=== PATIENT | female | born 1950 | race Caucasian/White ===

== ENCOUNTER 2020-10-29 09:07 | Inpatient (IN) ==
[2020-10-30] MEDS: Gabapentin 100 MG CAPSULE PO SCH ×2 (14:55→22:41)
[2020-10-30] MEDS: Baclofen 10 MG TABLET PO SCH ×2 (14:56→22:42)
[2020-10-30] MEDS ORDERED: Lidocaine 4% CREAM (LMX) 5 GM TP PRN (14:58)
[2020-10-30] MEDS: Budesonide/Formoterol 160/4.5 1 PUFF INH IH SCH (20:09)
[2020-10-30] MEDS: Amoxicillin 500 MG CAPSULE PO SCH (22:41)
[2020-10-31 04:52] LABS: Hematocrit 28.8 % (35.3-44.9); Hemoglobin 8.8 g/dL (11.5-15.4); Mean Corpuscular HGB Conc 30.6 g/dL (31.6-35.5); Mean Corpuscular Hemoglobin 26.4 pg (28.0-33.3); Mean Corpuscular Volume 86.5 fL (83.0-100.0); Mean Platelet Volume 8.6 fL (9.4-12.4); Platelet Count 284 K/mcL (140-400); Red Blood Count 3.33 M/mcL (3.82-4.97); Red Cell Distribution Width 18.5 % (11.5-14.5); White Blood Count 6.8 K/mcL (4.3-11.1)
[2020-10-31 05:07] LABS: BUN/Creatinine Ratio 12 (6-26); Blood Urea Nitrogen 12 mg/dL (8-23); Calcium 8.6 mg/dL (8.6-10.3); Carbon Dioxide 23 mEq/L (23-29); Chloride 112 mEq/L (98-107); Glucose 89 mg/dL (70-105); Osmolality,Calculated 293 (280-300); Potassium 3.6 mEq/L (3.5-5.1); Sodium 142 mEq/L (136-145); eGFR For African Americans > 60 (> 60); eGFR For Non-African Americans 53 (> 60)
[2020-10-31] MEDS: *HR* Enoxaparin 40 MG/0.4 ML SYRINGE SQ SCH (06:32)
[2020-10-31] MEDS ORDERED: NON-FORMULARY MEDICATION 1 EACH EACH (Omega-3/Dha/Epa/Fish Oil [Fish Oil 1,000 Mg Softgel] PO SCH (09:00)
[2020-10-31] MEDS: Gabapentin 100 MG CAPSULE PO SCH ×3 (09:26→21:34)
[2020-10-31] MEDS: Aspirin Enteric Coated 81 MG Tablet PO SCH (09:26)
[2020-10-31] MEDS: Amoxicillin 500 MG CAPSULE PO SCH ×2 (09:26→21:34)
[2020-10-31] MEDS: Baclofen 10 MG TABLET PO SCH ×3 (09:26→21:35)
[2020-10-31] MEDS: lisinopriL 10 MG TABLET PO SCH (09:26)
[2020-10-31] MEDS: Lactobacillus 1 EACH CAP.SPRINK PO SCH (09:26)
[2020-10-31] MEDS: Loratadine 10 MG TABLET PO SCH (09:27)
[2020-10-31] MEDS: Cholecalciferol (D-3) 1,000 UNIT (25MCG) TABLET PO SCH (09:27)
[2020-10-31] MEDS: predniSONE 5 MG TABLET PO SCH (09:27)
[2020-10-31] MEDS: Budesonide/Formoterol 160/4.5 1 PUFF INH IH SCH ×2 (09:34→20:29)
[2020-10-31] MEDS: *HR* OxyCODONE/APAP 5/325 TABLET PO PRN (20:18)
[2020-11-01] MEDS: *HR* Enoxaparin 40 MG/0.4 ML SYRINGE SQ SCH (06:28)
[2020-11-01] MEDS: Budesonide/Formoterol 160/4.5 1 PUFF INH IH SCH ×2 (07:59→21:04)
[2020-11-01] MEDS: Loratadine 10 MG TABLET PO SCH (08:14)
[2020-11-01] MEDS: Aspirin Enteric Coated 81 MG Tablet PO SCH (08:14)
[2020-11-01] MEDS: Gabapentin 100 MG CAPSULE PO SCH ×2 (08:14→21:33)
[2020-11-01] MEDS: Amoxicillin 500 MG CAPSULE PO SCH ×2 (08:14→21:33)
[2020-11-01] MEDS: Cholecalciferol (D-3) 1,000 UNIT (25MCG) TABLET PO SCH (08:14)
[2020-11-01] MEDS: Lactobacillus 1 EACH CAP.SPRINK PO SCH (08:14)
[2020-11-01] MEDS: Baclofen 10 MG TABLET PO SCH ×2 (08:15→16:51)
[2020-11-01] MEDS: lisinopriL 10 MG TABLET PO SCH (08:15)
[2020-11-01] MEDS: *HR* OxyCODONE/APAP 5/325 TABLET PO PRN ×2 (08:20→20:27)
[2020-11-01 15:19] LABS: Hematocrit 33.9 % (35.3-44.9); Hemoglobin 10.6 g/dL (11.5-15.4); Mean Corpuscular HGB Conc 31.3 g/dL (31.6-35.5); Mean Corpuscular Hemoglobin 26.8 pg (28.0-33.3); Mean Corpuscular Volume 85.6 fL (83.0-100.0); Mean Platelet Volume 8.3 fL (9.4-12.4); Platelet Count 312 K/mcL (140-400); Red Blood Count 3.96 M/mcL (3.82-4.97); Red Cell Distribution Width 18.2 % (11.5-14.5); White Blood Count 17.1 K/mcL (4.3-11.1)
[2020-11-01 15:36] LABS: Albumin 3.1 g/dL (3.5-5.7); Albumin/Globulin Ratio 1.2 (1.1-2.2); Bilirubin,Total 0.2 mg/dL (0.3-1.0); Calcium 9.2 mg/dL (8.6-10.3); Globulin 2.5 g/dL (2.4-3.5); Magnesium 1.6 mg/dL (1.6-2.6); Potassium 3.5 mEq/L (3.5-5.1); Total Protein 5.6 g/dL (6.4-8.9)
[2020-11-01] MEDS: predniSONE 5 MG TABLET PO SCH (16:51)
[2020-11-02] MEDS: *HR* Enoxaparin 40 MG/0.4 ML SYRINGE SQ SCH (05:10)
[2020-11-02] MEDS: Baclofen 10 MG TABLET PO SCH ×2 (05:10→17:45)
[2020-11-02] MEDS: Budesonide/Formoterol 160/4.5 1 PUFF INH IH SCH ×2 (07:12→20:19)
[2020-11-02] MEDS: Loratadine 10 MG TABLET PO SCH (09:46)
[2020-11-02] MEDS: Aspirin Enteric Coated 81 MG Tablet PO SCH (09:46)
[2020-11-02] MEDS: predniSONE 5 MG TABLET PO SCH (09:46)
[2020-11-02] MEDS: lisinopriL 10 MG TABLET PO SCH (09:47)
[2020-11-02] MEDS: Amoxicillin 500 MG CAPSULE PO SCH ×2 (09:47→21:11)
[2020-11-02] MEDS: Lactobacillus 1 EACH CAP.SPRINK PO SCH (09:47)
[2020-11-02] MEDS: Gabapentin 100 MG CAPSULE PO SCH ×2 (09:47→21:12)
[2020-11-02] MEDS: Cholecalciferol (D-3) 1,000 UNIT (25MCG) TABLET PO SCH (09:48)
[2020-11-02] MEDS: *HR* OxyCODONE/APAP 5/325 TABLET PO PRN ×2 (11:24→19:32)
[2020-11-03 04:48] LABS: Hemoglobin 9.5 g/dL (11.5-15.4); Mean Corpuscular HGB Conc 30.6 g/dL (31.6-35.5); Mean Corpuscular Hemoglobin 26.4 pg (28.0-33.3); Mean Corpuscular Volume 86.1 fL (83.0-100.0); Mean Platelet Volume 8.5 fL (9.4-12.4); Platelet Count 342 K/mcL (140-400); Red Cell Distribution Width 18.4 % (11.5-14.5); White Blood Count 9.9 K/mcL (4.3-11.1)
[2020-11-03 05:10] LABS: Calcium 9.1 mg/dL (8.6-10.3); Potassium 3.8 mEq/L (3.5-5.1)
[2020-11-03] MEDS: Baclofen 10 MG TABLET PO SCH ×2 (06:20→15:30)
[2020-11-03] MEDS: *HR* Enoxaparin 40 MG/0.4 ML SYRINGE SQ SCH (06:20)
[2020-11-03] MEDS: *HR* OxyCODONE/APAP 5/325 TABLET PO PRN ×2 (07:45→22:49)
[2020-11-03] MEDS: Budesonide/Formoterol 160/4.5 1 PUFF INH IH SCH ×2 (09:11→19:08)
[2020-11-03] MEDS: Aspirin Enteric Coated 81 MG Tablet PO SCH (10:03)
[2020-11-03] MEDS: Amoxicillin 500 MG CAPSULE PO SCH ×2 (10:03→20:35)
[2020-11-03] MEDS: Lactobacillus 1 EACH CAP.SPRINK PO SCH (10:03)
[2020-11-03] MEDS: Cholecalciferol (D-3) 1,000 UNIT (25MCG) TABLET PO SCH (10:03)
[2020-11-03] MEDS: Loratadine 10 MG TABLET PO SCH (10:04)
[2020-11-03] MEDS: lisinopriL 10 MG TABLET PO SCH (10:04)
[2020-11-03] MEDS: Gabapentin 100 MG CAPSULE PO SCH ×2 (10:04→20:35)
[2020-11-03] MEDS: predniSONE 5 MG TABLET PO SCH (10:04)
[2020-11-03 16:29] LABS: Bilirubin,Urine Negative (Negative); Blood,Urine Large (Negative); Clarity,Urine Clear (Clear); Color,Urine Yellow (Yellow); Glucose,Urine (UA) Normal (Normal); Ketones,Urine Negative (Negative); Leukocyte Esterase,Urine Moderate (Negative); Nitrite,Urine Negative (Negative); Protein,Urine 100 mg/dL (Neg-Trace); Specific Gravity,Urine 1.015 (1.010-1.025); Urobilinogen,Urine Normal (Normal)
[2020-11-03 17:07] LABS: WBC,Urine TNTC per hpf (0-3)
[2020-11-04] MEDS: Baclofen 10 MG TABLET PO SCH ×2 (05:23→17:26)
[2020-11-04] MEDS: *HR* Enoxaparin 40 MG/0.4 ML SYRINGE SQ SCH (07:49)
[2020-11-04] MEDS: *HR* OxyCODONE/APAP 5/325 TABLET PO PRN ×2 (09:27→20:51)
[2020-11-04] MEDS: Cholecalciferol (D-3) 1,000 UNIT (25MCG) TABLET PO SCH (09:27)
[2020-11-04] MEDS: Aspirin Enteric Coated 81 MG Tablet PO SCH (09:28)
[2020-11-04] MEDS: Loratadine 10 MG TABLET PO SCH (09:28)
[2020-11-04] MEDS: predniSONE 5 MG TABLET PO SCH (09:28)
[2020-11-04] MEDS: Lactobacillus 1 EACH CAP.SPRINK PO SCH (09:28)
[2020-11-04] MEDS: lisinopriL 10 MG TABLET PO SCH (09:28)
[2020-11-04] MEDS: Amoxicillin 500 MG CAPSULE PO SCH ×2 (09:28→21:38)
[2020-11-04] MEDS: Budesonide/Formoterol 160/4.5 1 PUFF INH IH SCH ×2 (09:57→19:30)
[2020-11-04] MEDS: Gabapentin 100 MG CAPSULE PO SCH ×2 (10:40→21:38)
[2020-11-05] MEDS: Baclofen 10 MG TABLET PO SCH ×2 (05:43→17:32)
[2020-11-05] MEDS: *HR* Enoxaparin 40 MG/0.4 ML SYRINGE SQ SCH (05:45)
[2020-11-05] MEDS: Budesonide/Formoterol 160/4.5 1 PUFF INH IH SCH ×2 (07:11→22:09)
[2020-11-05] MEDS: *HR* OxyCODONE/APAP 5/325 TABLET PO PRN ×2 (07:45→20:16)
[2020-11-05] MEDS: Aspirin Enteric Coated 81 MG Tablet PO SCH (09:21)
[2020-11-05] MEDS: Lactobacillus 1 EACH CAP.SPRINK PO SCH (09:21)
[2020-11-05] MEDS: Cholecalciferol (D-3) 1,000 UNIT (25MCG) TABLET PO SCH (09:21)
[2020-11-05] MEDS: Gabapentin 100 MG CAPSULE PO SCH (09:21)
[2020-11-05] MEDS: Loratadine 10 MG TABLET PO SCH (09:21)
[2020-11-05] MEDS: predniSONE 5 MG TABLET PO SCH (09:21)
[2020-11-05] MEDS: lisinopriL 10 MG TABLET PO SCH (09:23)
[2020-11-06] MEDS: Gabapentin 100 MG CAPSULE PO SCH ×3 (00:48→22:17)
[2020-11-06] MEDS: Baclofen 10 MG TABLET PO SCH ×2 (06:10→17:20)
[2020-11-06] MEDS: *HR* Enoxaparin 40 MG/0.4 ML SYRINGE SQ SCH (06:10)
[2020-11-06] MEDS: *HR* OxyCODONE/APAP 5/325 TABLET PO PRN ×2 (08:52→20:03)
[2020-11-06] MEDS: Budesonide/Formoterol 160/4.5 1 PUFF INH IH SCH ×2 (10:17→20:15)
[2020-11-06] MEDS: Lactobacillus 1 EACH CAP.SPRINK PO SCH (10:33)
[2020-11-06] MEDS: Loratadine 10 MG TABLET PO SCH (10:33)
[2020-11-06] MEDS: Cholecalciferol (D-3) 1,000 UNIT (25MCG) TABLET PO SCH (10:33)
[2020-11-06] MEDS: Aspirin Enteric Coated 81 MG Tablet PO SCH (10:34)
[2020-11-06] MEDS: lisinopriL 10 MG TABLET PO SCH (10:34)
[2020-11-06] MEDS: predniSONE 5 MG TABLET PO SCH (10:34)
[2020-11-07] MEDS: *HR* Enoxaparin 40 MG/0.4 ML SYRINGE SQ SCH (05:21)
[2020-11-07] MEDS: Baclofen 10 MG TABLET PO SCH ×2 (06:38→15:32)
[2020-11-07] MEDS: *HR* OxyCODONE/APAP 5/325 TABLET PO PRN ×2 (07:53→19:49)
[2020-11-07] MEDS: Aspirin Enteric Coated 81 MG Tablet PO SCH (08:51)
[2020-11-07] MEDS: lisinopriL 10 MG TABLET PO SCH (08:51)
[2020-11-07] MEDS: Lactobacillus 1 EACH CAP.SPRINK PO SCH (08:51)
[2020-11-07] MEDS: Cholecalciferol (D-3) 1,000 UNIT (25MCG) TABLET PO SCH (08:51)
[2020-11-07] MEDS: predniSONE 5 MG TABLET PO SCH (08:51)
[2020-11-07] MEDS: Gabapentin 100 MG CAPSULE PO SCH ×2 (08:51→22:22)
[2020-11-07] MEDS: Loratadine 10 MG TABLET PO SCH (08:51)
[2020-11-07] MEDS: Budesonide/Formoterol 160/4.5 1 PUFF INH IH SCH ×2 (10:14→21:15)
[2020-11-07] MEDS: Magic Mouthwash 10 ML UD Cup PO SCH ×2 (13:12→17:49)
[2020-11-08 05:29] LABS: BUN/Creatinine Ratio 26 (6-26); Blood Urea Nitrogen 24 mg/dL (8-23); Carbon Dioxide 24 mEq/L (23-29); Chloride 108 mEq/L (98-107); Glucose 80 mg/dL (70-105); Magnesium 1.9 mg/dL (1.6-2.6); Osmolality,Calculated 295 (280-300); Potassium 3.8 mEq/L (3.5-5.1); Sodium 141 mEq/L (136-145); eGFR For African Americans > 60 (> 60); eGFR For Non-African Americans > 60 (> 60)
[2020-11-08 05:41] LABS: Hematocrit 30.8 % (35.3-44.9); Hemoglobin 9.4 g/dL (11.5-15.4); Mean Corpuscular HGB Conc 30.5 g/dL (31.6-35.5); Mean Corpuscular Hemoglobin 27.6 pg (28.0-33.3); Mean Corpuscular Volume 90.3 fL (83.0-100.0); Mean Platelet Volume 9.3 fL (9.4-12.4); Platelet Count 353 K/mcL (140-400); Red Blood Count 3.41 M/mcL (3.82-4.97); Red Cell Distribution Width 17.9 % (11.5-14.5); White Blood Count 8.6 K/mcL (4.3-11.1)
[2020-11-08] MEDS: Baclofen 10 MG TABLET PO SCH ×2 (06:16→16:20)
[2020-11-08] MEDS: *HR* Enoxaparin 40 MG/0.4 ML SYRINGE SQ SCH (06:18)
[2020-11-08] MEDS: *HR* OxyCODONE/APAP 5/325 TABLET PO PRN ×2 (08:02→19:45)
[2020-11-08] MEDS: Magic Mouthwash 10 ML UD Cup PO SCH ×3 (09:24→16:16)
[2020-11-08] MEDS: Aspirin Enteric Coated 81 MG Tablet PO SCH (09:25)
[2020-11-08] MEDS: predniSONE 5 MG TABLET PO SCH (09:25)
[2020-11-08] MEDS: Cholecalciferol (D-3) 1,000 UNIT (25MCG) TABLET PO SCH (09:25)
[2020-11-08] MEDS: lisinopriL 10 MG TABLET PO SCH (09:25)
[2020-11-08] MEDS: Lactobacillus 1 EACH CAP.SPRINK PO SCH (09:25)
[2020-11-08] MEDS: Gabapentin 100 MG CAPSULE PO SCH ×2 (09:25→21:29)
[2020-11-08] MEDS: Loratadine 10 MG TABLET PO SCH (09:26)
[2020-11-08] MEDS: Budesonide/Formoterol 160/4.5 1 PUFF INH IH SCH ×2 (10:50→19:14)
[2020-11-09] MEDS: Baclofen 10 MG TABLET PO SCH (05:44)
[2020-11-09] MEDS: *HR* Enoxaparin 40 MG/0.4 ML SYRINGE SQ SCH (05:45)
[2020-11-09 07:06] VITALS: BP 137/84; PULSE 81; TEMP 97.9
[2020-11-09] MEDS: *HR* OxyCODONE/APAP 5/325 TABLET PO PRN (07:35)
[2020-11-09] MEDS: Magic Mouthwash 10 ML UD Cup PO SCH ×2 (07:43→14:03)
[2020-11-09] MEDS: Gabapentin 100 MG CAPSULE PO SCH (10:09)
[2020-11-09] MEDS: Cholecalciferol (D-3) 1,000 UNIT (25MCG) TABLET PO SCH (10:09)
[2020-11-09] MEDS: Lactobacillus 1 EACH CAP.SPRINK PO SCH (10:09)
[2020-11-09] MEDS: predniSONE 5 MG TABLET PO SCH (10:10)
[2020-11-09] MEDS: Aspirin Enteric Coated 81 MG Tablet PO SCH (10:10)
[2020-11-09] MEDS: lisinopriL 10 MG TABLET PO SCH (10:10)
[2020-11-09] MEDS: Loratadine 10 MG TABLET PO SCH (10:10)
[2020-11-09] MEDS: Budesonide/Formoterol 160/4.5 1 PUFF INH IH SCH (10:18)
[2020-11-09 10:21] VITALS: RESP 20; O2SAT 97
== END 2020-11-09 16:10 | disposition home health service (06) | DRG 945 ==
LOC: INPGRE 10-30 13:08
PROVIDERS: ADMIT Family Medicine; ATTEND Family Medicine

== ENCOUNTER 2020-11-11 19:39 | Inpatient (IN) ==
[2020-11-11 21:04] LABS: Basophils # 0.1 K/mcL (0.0-0.2); Basophils % 0.4 %; Eosinophils % 0.1 %; Hematocrit 32.2 % (35.3-44.9); Hemoglobin 9.7 g/dL (11.5-15.4); Immature Granulocytes % 0.7 % (0-4); Lymphocytes # 0.9 K/mcL (0.6-4.6); Lymphocytes % 5.3 %; Mean Corpuscular HGB Conc 30.1 g/dL (31.6-35.5); Mean Corpuscular Hemoglobin 25.9 pg (28.0-33.3); Mean Corpuscular Volume 85.9 fL (83.0-100.0); Monocytes # 1.2 K/mcL (0.0-1.3); Monocytes % 6.9 %; Neutrophils # 14.6 K/mcL (1.6-8.9); Platelet Count 335 K/mcL (140-400); Red Blood Count 3.75 M/mcL (3.82-4.97); Red Cell Distribution Width 17.1 % (11.5-14.5); Segmented Neutrophils % 86.6 %; White Blood Count 16.8 K/mcL (4.3-11.1)
[2020-11-11 21:22] LABS: Troponin I 0.12 ng/mL (< 0.04)
[2020-11-11] MEDS ORDERED: *HR* Heparin 5,000 UNIT/ML VIAL IVP PRN ×2 (21:46)
[2020-11-11] MEDS ORDERED: *HR* Heparin 5,000 UNIT/ML VIAL IVP ONE (21:46)
[2020-11-11] MEDS ORDERED: Heparin 25,000UNIT/250ML 1/2NS 25,000 UNIT/250 ML IV.SOLN IVC SCH (22:00)
[2020-11-11 22:37] LABS: Chloride 104 mEq/L (98-107); Potassium 3.8 mEq/L (3.5-5.1); Sodium 133 mEq/L (136-145)
[2020-11-11 22:38] LABS: BUN/Creatinine Ratio 18 (6-26); Blood Urea Nitrogen 17 mg/dL (8-23); Calcium 8.3 mg/dL (8.6-10.3); Carbon Dioxide 19 mEq/L (23-29); Glucose 91 mg/dL (70-105); Osmolality,Calculated 277 (280-300); eGFR For African Americans > 60 (> 60); eGFR For Non-African Americans 57 (> 60)
[2020-11-11 22:39] LABS: Alanine Aminotransferase 9 Units/L (7-52); Albumin 2.9 g/dL (3.5-5.7); Albumin/Globulin Ratio 1.1 (1.1-2.2); Alkaline Phosphatase 53 Units/L (34-104); Aspartate Amino Transferase 16 Units/L (13-39); Bilirubin,Total 0.7 mg/dL (0.3-1.0); Globulin 2.7 g/dL (2.4-3.5); Total Protein 5.6 g/dL (6.4-8.9)
[2020-11-11 22:44] LABS: Bilirubin,Urine Negative (Negative); Blood,Urine Moderate (Negative); Clarity,Urine Cloudy (Clear); Color,Urine Yellow (Yellow); Glucose,Urine (UA) Normal (Normal); Ketones,Urine Negative (Negative); Leukocyte Esterase,Urine Large (Negative); Nitrite,Urine Negative (Negative); Protein,Urine 100 mg/dL (Neg-Trace); Urobilinogen,Urine Normal (Normal)
[2020-11-11] MEDS: levoFLOXacin 750 MG/150 ML 750 MG/150 ML BAG IVPB SCH (22:54)
[2020-11-11 23:07] LABS: Bacteria,Urine Many per hpf (None-Few); Squamous Epithelial Cell,Urine Few per hpf (None-Few); WBC,Urine 30-50 per hpf (0-3)
[2020-11-12] MEDS ORDERED: Ondansetron 4 MG/2 ML VIAL IVP ONE (00:39)
[2020-11-12] MEDS ORDERED: *HR* OxyCODONE/APAP 5/325 TABLET PO ONE (03:36)
[2020-11-12] MEDS: levoFLOXacin 750 MG/150 ML 750 MG/150 ML BAG IVPB SCH (09:34)
[2020-11-12] MEDS ORDERED: Naloxone 0.4 MG/ML INJ IVP PRN (10:27)
[2020-11-12] MEDS ORDERED: Ondansetron 4 MG/2 ML VIAL IVP PRN (10:27)
[2020-11-12] MEDS ORDERED: 0.9 % Sodium Chloride 500 ML ONE (10:35)
[2020-11-12] MEDS: Baclofen 10 MG TABLET PO SCH ×3 (11:25→18:58)
[2020-11-12] MEDS: 0.9 % Sodium Chloride 1,000 ML IVC SCH ×2 (11:43→21:13)
[2020-11-12] MEDS: Ampicillin/Sulbactam 1,500 MG in 0.9 % Sodium Chloride Mini Bag 100 ML IVPB SCH ×3 (11:49→23:58)
[2020-11-12] MEDS: Loratadine 10 MG TABLET PO SCH (14:12)
[2020-11-12] MEDS: *HR* OxyCODONE/APAP 5/325 TABLET PO PRN (14:37)
[2020-11-12] MEDS: Hydrocortisone Sodium Succ 100 MG/2 ML VIAL IVP SCH ×3 (14:37→23:57)
[2020-11-12] MEDS ORDERED: Baclofen 10 MG TABLET PO SCH (15:00)
[2020-11-12] MEDS ORDERED: Gabapentin 100 MG CAPSULE PO SCH (15:00)
[2020-11-12] MEDS ORDERED: levoFLOXacin 750 MG/150 ML 750 MG/150 ML BAG IVPB SCH (21:00)
[2020-11-12] MEDS: Gabapentin 100 MG CAPSULE PO SCH (21:13)
[2020-11-12] MEDS: Budesonide/Formoterol 160/4.5 1 PUFF INH IH SCH (21:20)
[2020-11-13] MEDS: Ampicillin/Sulbactam 1,500 MG in 0.9 % Sodium Chloride Mini Bag 100 ML IVPB SCH ×4 (05:49→23:46)
[2020-11-13] MEDS: Baclofen 10 MG TABLET PO SCH ×2 (05:50→16:49)
[2020-11-13] MEDS: Hydrocortisone Sodium Succ 100 MG/2 ML VIAL IVP SCH ×4 (05:51→23:41)
[2020-11-13] MEDS: *HR* Enoxaparin 40 MG/0.4 ML SYRINGE SQ SCH (05:53)
[2020-11-13 05:58] LABS: Basophils % 0.1 %; Hematocrit 27.7 % (35.3-44.9); Immature Granulocytes % 0.6 % (0-4); Lymphocytes # 0.6 K/mcL (0.6-4.6); Lymphocytes % 8.8 %; Mean Corpuscular HGB Conc 29.6 g/dL (31.6-35.5); Mean Corpuscular Hemoglobin 25.9 pg (28.0-33.3); Mean Corpuscular Volume 87.7 fL (83.0-100.0); Mean Platelet Volume 9.3 fL (9.4-12.4); Monocytes # 0.3 K/mcL (0.0-1.3); Monocytes % 3.7 %; Neutrophils # 5.9 K/mcL (1.6-8.9); Platelet Count 262 K/mcL (140-400); Red Blood Count 3.16 M/mcL (3.82-4.97); Red Cell Distribution Width 17.3 % (11.5-14.5); Segmented Neutrophils % 86.8 %; White Blood Count 6.8 K/mcL (4.3-11.1)
[2020-11-13 06:00] LABS: Hemoglobin 8.2 g/dL (11.5-15.4)
[2020-11-13 06:17] LABS: BUN/Creatinine Ratio 18 (6-26); Blood Urea Nitrogen 17 mg/dL (8-23); Calcium 7.3 mg/dL (8.6-10.3); Carbon Dioxide 20 mEq/L (23-29); Chloride 111 mEq/L (98-107); Glucose 104 mg/dL (70-105); Magnesium 1.8 mg/dL (1.6-2.6); Osmolality,Calculated 288 (280-300); Sodium 138 mEq/L (136-145); eGFR For African Americans > 60 (> 60); eGFR For Non-African Americans 57 (> 60)
[2020-11-13] MEDS: predniSONE 5 MG TABLET PO SCH (08:39)
[2020-11-13] MEDS: Aspirin Enteric Coated 81 MG Tablet PO SCH (08:39)
[2020-11-13] MEDS: Loratadine 10 MG TABLET PO SCH (08:39)
[2020-11-13] MEDS: Cholecalciferol (D-3) 1,000 UNIT (25MCG) TABLET PO SCH (08:39)
[2020-11-13] MEDS: Lactobacillus 1 EACH CAP.SPRINK PO SCH (08:39)
[2020-11-13] MEDS: lisinopriL 10 MG TABLET PO SCH (08:40)
[2020-11-13] MEDS: Gabapentin 100 MG CAPSULE PO SCH ×3 (08:40→22:01)
[2020-11-13] MEDS ORDERED: NON-FORMULARY MEDICATION 1 EACH EACH (Omega-3/Dha/Epa/Fish Oil [Fish Oil 1,000 Mg Softgel] PO SCH (09:00)
[2020-11-13] MEDS: Budesonide/Formoterol 160/4.5 1 PUFF INH IH SCH ×2 (09:20→21:22)
[2020-11-13] MEDS: *HR* OxyCODONE/APAP 5/325 TABLET PO PRN ×2 (11:39→23:39)
[2020-11-14] MEDS: Ampicillin/Sulbactam 1,500 MG in 0.9 % Sodium Chloride Mini Bag 100 ML IVPB SCH ×2 (05:50→12:38)
[2020-11-14] MEDS: Hydrocortisone Sodium Succ 100 MG/2 ML VIAL IVP SCH ×2 (05:50→12:40)
[2020-11-14] MEDS: *HR* Enoxaparin 40 MG/0.4 ML SYRINGE SQ SCH (05:56)
[2020-11-14] MEDS: Baclofen 10 MG TABLET PO SCH ×2 (05:57→16:43)
[2020-11-14] MEDS: Cholecalciferol (D-3) 1,000 UNIT (25MCG) TABLET PO SCH (09:02)
[2020-11-14] MEDS: predniSONE 5 MG TABLET PO SCH (09:02)
[2020-11-14] MEDS: Lactobacillus 1 EACH CAP.SPRINK PO SCH (09:02)
[2020-11-14] MEDS: Aspirin Enteric Coated 81 MG Tablet PO SCH (09:02)
[2020-11-14] MEDS: Loratadine 10 MG TABLET PO SCH (09:02)
[2020-11-14] MEDS: lisinopriL 10 MG TABLET PO SCH (09:02)
[2020-11-14] MEDS: Gabapentin 100 MG CAPSULE PO SCH ×2 (09:02→20:37)
[2020-11-14] MEDS: Budesonide/Formoterol 160/4.5 1 PUFF INH IH SCH ×2 (09:33→22:13)
[2020-11-14] MEDS: levoFLOXacin 750 MG/150 ML 750 MG/150 ML BAG IVPB SCH (12:40)
[2020-11-14] MEDS: *HR* OxyCODONE/APAP 5/325 TABLET PO PRN (15:30)
[2020-11-15] MEDS: Baclofen 10 MG TABLET PO SCH ×2 (05:50→18:15)
[2020-11-15] MEDS: *HR* Enoxaparin 40 MG/0.4 ML SYRINGE SQ SCH (05:50)
[2020-11-15] MEDS: *HR* OxyCODONE/APAP 5/325 TABLET PO PRN ×2 (08:35→19:56)
[2020-11-15] MEDS: Cholecalciferol (D-3) 1,000 UNIT (25MCG) TABLET PO SCH (09:39)
[2020-11-15] MEDS: Aspirin Enteric Coated 81 MG Tablet PO SCH (09:39)
[2020-11-15] MEDS: Lactobacillus 1 EACH CAP.SPRINK PO SCH (09:39)
[2020-11-15] MEDS: Loratadine 10 MG TABLET PO SCH (09:39)
[2020-11-15] MEDS: predniSONE 5 MG TABLET PO SCH (09:39)
[2020-11-15] MEDS: lisinopriL 10 MG TABLET PO SCH (09:40)
[2020-11-15] MEDS: Gabapentin 100 MG CAPSULE PO SCH ×2 (09:41→22:13)
[2020-11-15] MEDS: Budesonide/Formoterol 160/4.5 1 PUFF INH IH SCH ×2 (10:28→21:08)
[2020-11-15] MEDS: levoFLOXacin 750 MG/150 ML 750 MG/150 ML BAG IVPB SCH (13:23)
[2020-11-15] MEDS: Acetaminophen 325 MG TABLET PO PRN (18:17)
[2020-11-16] MEDS: Baclofen 10 MG TABLET PO SCH ×2 (05:42→16:25)
[2020-11-16] MEDS: *HR* Enoxaparin 40 MG/0.4 ML SYRINGE SQ SCH (05:42)
[2020-11-16] MEDS: *HR* OxyCODONE/APAP 5/325 TABLET PO PRN ×2 (07:41→19:23)
[2020-11-16] MEDS: Budesonide/Formoterol 160/4.5 1 PUFF INH IH SCH ×2 (07:51→20:36)
[2020-11-16] MEDS: Cholecalciferol (D-3) 1,000 UNIT (25MCG) TABLET PO SCH (09:04)
[2020-11-16] MEDS: Gabapentin 100 MG CAPSULE PO SCH ×2 (09:04→21:29)
[2020-11-16] MEDS: lisinopriL 10 MG TABLET PO SCH (09:04)
[2020-11-16] MEDS: predniSONE 5 MG TABLET PO SCH (09:04)
[2020-11-16] MEDS: Lactobacillus 1 EACH CAP.SPRINK PO SCH (09:04)
[2020-11-16] MEDS: Aspirin Enteric Coated 81 MG Tablet PO SCH (09:04)
[2020-11-16] MEDS: Loratadine 10 MG TABLET PO SCH (09:05)
[2020-11-16] MEDS ORDERED: 0.9 % Sodium Chloride 500 ML ONE (11:32)
[2020-11-16 12:01] LABS: Hematocrit 31.4 % (35.3-44.9); Hemoglobin 9.3 g/dL (11.5-15.4); Mean Corpuscular HGB Conc 29.6 g/dL (31.6-35.5); Mean Corpuscular Hemoglobin 25.5 pg (28.0-33.3); Mean Platelet Volume 9.6 fL (9.4-12.4); Platelet Count 351 K/mcL (140-400); Red Blood Count 3.65 M/mcL (3.82-4.97); Red Cell Distribution Width 17.5 % (11.5-14.5); White Blood Count 11.5 K/mcL (4.3-11.1)
[2020-11-16 12:03] LABS: BUN/Creatinine Ratio 21 (6-26); Blood Urea Nitrogen 21 mg/dL (8-23); Calcium 8.5 mg/dL (8.6-10.3); Carbon Dioxide 21 mEq/L (23-29); Chloride 112 mEq/L (98-107); Glucose 111 mg/dL (70-105); Magnesium 1.8 mg/dL (1.6-2.6); Osmolality,Calculated 296 (280-300); Potassium 3.2 mEq/L (3.5-5.1); Sodium 141 mEq/L (136-145); eGFR For African Americans > 60 (> 60); eGFR For Non-African Americans 56 (> 60)
[2020-11-16] MEDS: levoFLOXacin 750 MG/150 ML 750 MG/150 ML BAG IVPB SCH (12:10)
[2020-11-16] MEDS: 0.9 % Sodium Chloride 1,000 ML IVC SCH ×2 (14:44→23:56)
[2020-11-16] MEDS: Acetaminophen 325 MG TABLET PO PRN (14:53)
[2020-11-17] MEDS: Baclofen 10 MG TABLET PO SCH (05:42)
[2020-11-17] MEDS: *HR* Enoxaparin 40 MG/0.4 ML SYRINGE SQ SCH (05:43)
[2020-11-17 07:32] VITALS: BP 152/81; PULSE 82; TEMP 97.6
[2020-11-17] MEDS: *HR* OxyCODONE/APAP 5/325 TABLET PO PRN (07:43)
[2020-11-17] MEDS: Budesonide/Formoterol 160/4.5 1 PUFF INH IH SCH (09:13)
[2020-11-17 09:15] VITALS: RESP 14; O2SAT 96
[2020-11-17] MEDS: 0.9 % Sodium Chloride 1,000 ML IVC SCH (09:48)
[2020-11-17] MEDS: Cholecalciferol (D-3) 1,000 UNIT (25MCG) TABLET PO SCH (09:50)
[2020-11-17] MEDS: Aspirin Enteric Coated 81 MG Tablet PO SCH (09:50)
[2020-11-17] MEDS: Gabapentin 100 MG CAPSULE PO SCH (09:50)
[2020-11-17] MEDS: lisinopriL 10 MG TABLET PO SCH (09:51)
[2020-11-17] MEDS: predniSONE 5 MG TABLET PO SCH (09:51)
[2020-11-17] MEDS: Loratadine 10 MG TABLET PO SCH (09:51)
[2020-11-17] MEDS: Lactobacillus 1 EACH CAP.SPRINK PO SCH (09:51)
[2020-11-17] MEDS: levoFLOXacin 750 MG/150 ML 750 MG/150 ML BAG IVPB SCH (13:46)
[2020-11-17] MEDS: Acetaminophen 325 MG TABLET PO PRN (13:56)
== END 2020-11-17 15:49 | disposition other institution (70) | DRG 698 ==
LOC: EMEROOGRE 19:39 → INPGRE 19:39
PROVIDERS: ADMIT Family Medicine; ATTEND Family Medicine

== ENCOUNTER 2020-11-17 15:51 | Inpatient (IN) ==
[2020-11-17] MEDS: Baclofen 10 MG TABLET PO SCH (18:15)
[2020-11-17] MEDS: Budesonide/Formoterol 160/4.5 1 PUFF INH IH SCH (18:45)
[2020-11-17] MEDS: *HR* OxyCODONE/APAP 5/325 TABLET PO PRN (19:51)
[2020-11-17] MEDS ORDERED: Baclofen 10 MG TABLET PO SCH (21:00)
[2020-11-17] MEDS: Gabapentin 100 MG CAPSULE PO SCH (21:39)
[2020-11-18] MEDS: Baclofen 10 MG TABLET PO SCH ×2 (05:25→17:11)
[2020-11-18 05:37] LABS: BUN/Creatinine Ratio 18 (6-26); Blood Urea Nitrogen 16 mg/dL (8-23); Calcium 8.4 mg/dL (8.6-10.3); Carbon Dioxide 25 mEq/L (23-29); Chloride 110 mEq/L (98-107); Glucose 88 mg/dL (70-105); Osmolality,Calculated 293 (280-300); Potassium 4.1 mEq/L (3.5-5.1); Sodium 141 mEq/L (136-145); eGFR For African Americans > 60 (> 60); eGFR For Non-African Americans > 60 (> 60)
[2020-11-18 05:40] LABS: Basophils % 0.4 %; Eosinophils # 0.4 K/mcL (0.0-0.6); Hematocrit 28.8 % (35.3-44.9); Hemoglobin 8.6 g/dL (11.5-15.4); Immature Granulocytes % 1.6 % (0-4); Lymphocytes # 1.5 K/mcL (0.6-4.6); Lymphocytes % 15.6 %; Mean Corpuscular HGB Conc 29.9 g/dL (31.6-35.5); Mean Corpuscular Hemoglobin 25.9 pg (28.0-33.3); Mean Corpuscular Volume 86.7 fL (83.0-100.0); Mean Platelet Volume 9.4 fL (9.4-12.4); Monocytes # 0.7 K/mcL (0.0-1.3); Neutrophils # 6.6 K/mcL (1.6-8.9); Platelet Count 307 K/mcL (140-400); Red Blood Count 3.32 M/mcL (3.82-4.97); Red Cell Distribution Width 17.9 % (11.5-14.5); Segmented Neutrophils % 71.4 %; White Blood Count 9.3 K/mcL (4.3-11.1)
[2020-11-18] MEDS: *HR* OxyCODONE/APAP 5/325 TABLET PO PRN ×2 (08:04→19:51)
[2020-11-18] MEDS: *HR* Enoxaparin 40 MG/0.4 ML SYRINGE SQ SCH (08:05)
[2020-11-18] MEDS ORDERED: Patient Taking Own Medication 1 EACH PO SCH (09:00)
[2020-11-18] MEDS: Gabapentin 100 MG CAPSULE PO SCH ×3 (09:12→21:06)
[2020-11-18] MEDS: Cholecalciferol (D-3) 1,000 UNIT (25MCG) TABLET PO SCH (09:12)
[2020-11-18] MEDS: lisinopriL 10 MG TABLET PO SCH (09:13)
[2020-11-18] MEDS: Aspirin Enteric Coated 81 MG Tablet PO SCH (09:13)
[2020-11-18] MEDS: Lactobacillus 1 EACH CAP.SPRINK PO SCH (09:13)
[2020-11-18] MEDS: predniSONE 5 MG TABLET PO SCH (09:13)
[2020-11-18] MEDS: Loratadine 10 MG TABLET PO SCH (09:13)
[2020-11-18] MEDS: Budesonide/Formoterol 160/4.5 1 PUFF INH IH SCH ×2 (09:46→19:57)
[2020-11-18] MEDS: levoFLOXacin 500 MG TABLET PO SCH (13:34)
[2020-11-19] MEDS: Baclofen 10 MG TABLET PO SCH ×2 (05:32→18:14)
[2020-11-19] MEDS: *HR* Enoxaparin 40 MG/0.4 ML SYRINGE SQ SCH (05:32)
[2020-11-19] MEDS: *HR* OxyCODONE/APAP 5/325 TABLET PO PRN ×2 (08:14→21:21)
[2020-11-19] MEDS: Cholecalciferol (D-3) 1,000 UNIT (25MCG) TABLET PO SCH (08:14)
[2020-11-19] MEDS: Aspirin Enteric Coated 81 MG Tablet PO SCH (08:14)
[2020-11-19] MEDS: Lactobacillus 1 EACH CAP.SPRINK PO SCH (08:14)
[2020-11-19] MEDS: Loratadine 10 MG TABLET PO SCH (08:15)
[2020-11-19] MEDS: levoFLOXacin 500 MG TABLET PO SCH (08:15)
[2020-11-19] MEDS: lisinopriL 10 MG TABLET PO SCH (08:15)
[2020-11-19] MEDS: predniSONE 5 MG TABLET PO SCH (08:15)
[2020-11-19] MEDS: Budesonide/Formoterol 160/4.5 1 PUFF INH IH SCH ×2 (09:58→21:03)
[2020-11-19] MEDS: Gabapentin 100 MG CAPSULE PO SCH ×3 (10:23→22:37)
[2020-11-20] MEDS: Baclofen 10 MG TABLET PO SCH ×2 (06:09→18:12)
[2020-11-20] MEDS: *HR* Enoxaparin 40 MG/0.4 ML SYRINGE SQ SCH (06:13)
[2020-11-20] MEDS: *HR* OxyCODONE/APAP 5/325 TABLET PO PRN ×2 (07:16→19:45)
[2020-11-20] MEDS: lisinopriL 10 MG TABLET PO SCH (08:21)
[2020-11-20] MEDS: levoFLOXacin 500 MG TABLET PO SCH (08:21)
[2020-11-20] MEDS: Lactobacillus 1 EACH CAP.SPRINK PO SCH (08:21)
[2020-11-20] MEDS: Aspirin Enteric Coated 81 MG Tablet PO SCH (08:21)
[2020-11-20] MEDS: Cholecalciferol (D-3) 1,000 UNIT (25MCG) TABLET PO SCH (08:21)
[2020-11-20] MEDS: Gabapentin 100 MG CAPSULE PO SCH ×3 (08:22→21:24)
[2020-11-20] MEDS: predniSONE 5 MG TABLET PO SCH (08:22)
[2020-11-20] MEDS: Loratadine 10 MG TABLET PO SCH (08:22)
[2020-11-20] MEDS: polyethylene glycoL 3350 17 GM POWD.PACK PO SCH (08:24)
[2020-11-20] MEDS: Budesonide/Formoterol 160/4.5 1 PUFF INH IH SCH ×2 (09:42→20:48)
[2020-11-21] MEDS: *HR* Enoxaparin 40 MG/0.4 ML SYRINGE SQ SCH (04:35)
[2020-11-21] MEDS: Baclofen 10 MG TABLET PO SCH ×2 (04:35→18:46)
[2020-11-21] MEDS: polyethylene glycoL 3350 17 GM POWD.PACK PO SCH (09:23)
[2020-11-21] MEDS: Cholecalciferol (D-3) 1,000 UNIT (25MCG) TABLET PO SCH (09:23)
[2020-11-21] MEDS: *HR* OxyCODONE/APAP 5/325 TABLET PO PRN ×2 (09:23→19:36)
[2020-11-21] MEDS: Lactobacillus 1 EACH CAP.SPRINK PO SCH (09:23)
[2020-11-21] MEDS: predniSONE 5 MG TABLET PO SCH (09:23)
[2020-11-21] MEDS: lisinopriL 10 MG TABLET PO SCH (09:24)
[2020-11-21] MEDS: Aspirin Enteric Coated 81 MG Tablet PO SCH (09:24)
[2020-11-21] MEDS: levoFLOXacin 500 MG TABLET PO SCH (09:24)
[2020-11-21] MEDS: Loratadine 10 MG TABLET PO SCH (09:24)
[2020-11-21] MEDS: Budesonide/Formoterol 160/4.5 1 PUFF INH IH SCH ×2 (10:11→20:29)
[2020-11-21] MEDS: Gabapentin 100 MG CAPSULE PO SCH ×3 (10:21→22:03)
[2020-11-21] MEDS ORDERED: Fluconazole 150 MG TABLET PO ONE (13:36)
[2020-11-21] MEDS: Nystatin POWDER 30 GM BOTTLE TP SCH (22:03)
[2020-11-22 05:22] LABS: Basophils % 0.4 %; Eosinophils # 0.2 K/mcL (0.0-0.6); Hematocrit 29.4 % (35.3-44.9); Hemoglobin 8.9 g/dL (11.5-15.4); Immature Granulocytes % 0.9 % (0-4); Lymphocytes # 1.8 K/mcL (0.6-4.6); Lymphocytes % 22.4 %; Mean Corpuscular HGB Conc 30.3 g/dL (31.6-35.5); Mean Corpuscular Hemoglobin 25.9 pg (28.0-33.3); Mean Corpuscular Volume 85.5 fL (83.0-100.0); Mean Platelet Volume 9.7 fL (9.4-12.4); Monocytes # 0.8 K/mcL (0.0-1.3); Monocytes % 10.2 %; Platelet Count 188 K/mcL (140-400); Red Blood Count 3.44 M/mcL (3.82-4.97); Red Cell Distribution Width 17.2 % (11.5-14.5); Segmented Neutrophils % 64.1 %; White Blood Count 7.8 K/mcL (4.3-11.1)
[2020-11-22 05:33] LABS: BUN/Creatinine Ratio 23 (6-26); Blood Urea Nitrogen 20 mg/dL (8-23); Calcium 8.9 mg/dL (8.6-10.3); Carbon Dioxide 29 mEq/L (23-29); Chloride 107 mEq/L (98-107); Glucose 81 mg/dL (70-105); Osmolality,Calculated 296 (280-300); Potassium 3.6 mEq/L (3.5-5.1); Sodium 142 mEq/L (136-145); eGFR For African Americans > 60 (> 60); eGFR For Non-African Americans > 60 (> 60)
[2020-11-22] MEDS: Baclofen 10 MG TABLET PO SCH ×2 (05:56→16:19)
[2020-11-22] MEDS: *HR* Enoxaparin 40 MG/0.4 ML SYRINGE SQ SCH (05:56)
[2020-11-22] MEDS: *HR* OxyCODONE/APAP 5/325 TABLET PO PRN ×2 (07:47→20:48)
[2020-11-22] MEDS: Cholecalciferol (D-3) 1,000 UNIT (25MCG) TABLET PO SCH (09:13)
[2020-11-22] MEDS: Gabapentin 100 MG CAPSULE PO SCH ×3 (09:14→22:13)
[2020-11-22] MEDS: lisinopriL 10 MG TABLET PO SCH (09:14)
[2020-11-22] MEDS: predniSONE 5 MG TABLET PO SCH (09:14)
[2020-11-22] MEDS: Lactobacillus 1 EACH CAP.SPRINK PO SCH (09:14)
[2020-11-22] MEDS: Loratadine 10 MG TABLET PO SCH (09:14)
[2020-11-22] MEDS: Aspirin Enteric Coated 81 MG Tablet PO SCH (09:14)
[2020-11-22] MEDS: polyethylene glycoL 3350 17 GM POWD.PACK PO SCH (09:15)
[2020-11-22] MEDS: levoFLOXacin 500 MG TABLET PO SCH (09:28)
[2020-11-22] MEDS: Nystatin POWDER 30 GM BOTTLE TP SCH ×2 (09:31→22:38)
[2020-11-22] MEDS: Budesonide/Formoterol 160/4.5 1 PUFF INH IH SCH ×2 (11:10→21:35)
[2020-11-22] MEDS: Fluconazole 100 MG TABLET PO SCH (16:18)
[2020-11-23] MEDS: Baclofen 10 MG TABLET PO SCH (05:08)
[2020-11-23] MEDS: *HR* Enoxaparin 40 MG/0.4 ML SYRINGE SQ SCH (05:08)
[2020-11-23 07:43] VITALS: BP 144/83; PULSE 77; RESP 16; TEMP 98
[2020-11-23] MEDS: Cholecalciferol (D-3) 1,000 UNIT (25MCG) TABLET PO SCH (08:03)
[2020-11-23] MEDS: Aspirin Enteric Coated 81 MG Tablet PO SCH (08:03)
[2020-11-23] MEDS: Fluconazole 100 MG TABLET PO SCH (08:03)
[2020-11-23] MEDS: lisinopriL 10 MG TABLET PO SCH (08:03)
[2020-11-23] MEDS: Lactobacillus 1 EACH CAP.SPRINK PO SCH (08:03)
[2020-11-23] MEDS: *HR* OxyCODONE/APAP 5/325 TABLET PO PRN (08:03)
[2020-11-23] MEDS: polyethylene glycoL 3350 17 GM POWD.PACK PO SCH (08:04)
[2020-11-23] MEDS: Nystatin POWDER 30 GM BOTTLE TP SCH (08:04)
[2020-11-23] MEDS: Loratadine 10 MG TABLET PO SCH (08:04)
[2020-11-23] MEDS: predniSONE 5 MG TABLET PO SCH (08:04)
[2020-11-23] MEDS: Gabapentin 100 MG CAPSULE PO SCH ×2 (10:42→14:43)
[2020-11-23] MEDS: Budesonide/Formoterol 160/4.5 1 PUFF INH IH SCH (11:26)
[2020-11-23 11:28] VITALS: O2SAT 97
== END 2020-11-23 15:35 | disposition home health service (06) | DRG 945 ==
LOC: INPGRE 16:59
PROVIDERS: ADMIT Family Medicine; ATTEND Family Medicine

== ENCOUNTER 2021-01-04 18:00 | Inpatient (IN) ==
[2021-01-04] MEDS ORDERED: Furosemide 40 MG TABLET PO PRN (19:56)
[2021-01-04] MEDS: Budesonide/Formoterol 160/4.5 1 PUFF INH IH SCH (20:04)
[2021-01-04] MEDS ORDERED: Ipratropium/Albuterol Neb 3 ML IH PRN (22:13)
[2021-01-04] MEDS: Lactobacillus 1 EACH CAP.SPRINK PO SCH (22:21)
[2021-01-04] MEDS: Baclofen 10 MG TABLET PO SCH (22:21)
[2021-01-04] MEDS: Gabapentin 100 MG CAPSULE PO SCH (23:05)
[2021-01-05] MEDS: *HR* OxyCODONE/APAP 5/325 TABLET PO PRN ×2 (01:02→13:53)
[2021-01-05 04:33] LABS: Basophils # 0.1 K/mcL (0.0-0.2); Basophils % 0.9 %; Eosinophils # 0.4 K/mcL (0.0-0.6); Eosinophils % 4.7 %; Hemoglobin 8.6 g/dL (11.5-15.4); Immature Granulocytes % 1.2 % (0-4); Lymphocytes # 1.4 K/mcL (0.6-4.6); Lymphocytes % 18.7 %; Mean Corpuscular HGB Conc 30.7 g/dL (31.6-35.5); Mean Corpuscular Hemoglobin 25.5 pg (28.0-33.3); Mean Corpuscular Volume 83.1 fL (83.0-100.0); Mean Platelet Volume 9.8 fL (9.4-12.4); Monocytes % 13.4 %; Neutrophils # 4.7 K/mcL (1.6-8.9); Platelet Count 142 K/mcL (140-400); Red Blood Count 3.37 M/mcL (3.82-4.97); Red Cell Distribution Width 18.6 % (11.5-14.5); Segmented Neutrophils % 61.1 %; White Blood Count 7.7 K/mcL (4.3-11.1)
[2021-01-05 04:48] LABS: BUN/Creatinine Ratio 15 (6-26); Blood Urea Nitrogen 14 mg/dL (8-23); Calcium 8.9 mg/dL (8.6-10.3); Carbon Dioxide 24 mEq/L (23-29); Chloride 110 mEq/L (98-107); Glucose 77 mg/dL (70-105); Magnesium 1.7 mg/dL (1.6-2.6); Osmolality,Calculated 291 (280-300); Phosphorous 2.6 mg/dL (2.7-4.5); Potassium 3.6 mEq/L (3.5-5.1); Sodium 141 mEq/L (136-145); eGFR For African Americans > 60 (> 60); eGFR For Non-African Americans 60 (> 60)
[2021-01-05] MEDS: *HR* Enoxaparin 40 MG/0.4 ML SYRINGE SQ SCH (05:14)
[2021-01-05] MEDS: predniSONE 5 MG TABLET PO SCH (08:13)
[2021-01-05] MEDS: Lactobacillus 1 EACH CAP.SPRINK PO SCH ×2 (08:13→20:44)
[2021-01-05] MEDS: Cholecalciferol (D-3) 1,000 UNIT (25MCG) TABLET PO SCH (08:13)
[2021-01-05] MEDS: Aspirin Enteric Coated 81 MG Tablet PO SCH (08:13)
[2021-01-05] MEDS: Baclofen 10 MG TABLET PO SCH ×3 (08:13→22:39)
[2021-01-05] MEDS: Nitrofurantoin (BID) 100 MG CAPSULE PO SCH ×2 (08:13→17:45)
[2021-01-05] MEDS: Loratadine 10 MG TABLET PO SCH (08:14)
[2021-01-05] MEDS: Omega-3/Dha/Epa/Fish Oil [Fish Oil 1,000 Mg Softgel] PO SCH (08:14)
[2021-01-05] MEDS: Budesonide/Formoterol 160/4.5 1 PUFF INH IH SCH ×2 (08:59→19:53)
[2021-01-05] MEDS: Gabapentin 100 MG CAPSULE PO SCH ×3 (09:41→20:44)
[2021-01-05] MEDS ORDERED: Fluconazole 150 MG TABLET PO ONE (12:31)
[2021-01-06] MEDS: *HR* Enoxaparin 40 MG/0.4 ML SYRINGE SQ SCH (07:02)
[2021-01-06] MEDS: Loratadine 10 MG TABLET PO SCH (08:28)
[2021-01-06] MEDS: predniSONE 5 MG TABLET PO SCH (08:28)
[2021-01-06] MEDS: Cholecalciferol (D-3) 1,000 UNIT (25MCG) TABLET PO SCH (08:28)
[2021-01-06] MEDS: Omega-3/Dha/Epa/Fish Oil [Fish Oil 1,000 Mg Softgel] PO SCH (08:29)
[2021-01-06] MEDS: Aspirin Enteric Coated 81 MG Tablet PO SCH (08:29)
[2021-01-06] MEDS: Lactobacillus 1 EACH CAP.SPRINK PO SCH ×2 (08:29→20:49)
[2021-01-06] MEDS: Nitrofurantoin (BID) 100 MG CAPSULE PO SCH ×2 (08:29→17:11)
[2021-01-06] MEDS: Baclofen 10 MG TABLET PO SCH ×3 (08:29→23:00)
[2021-01-06] MEDS: Gabapentin 100 MG CAPSULE PO SCH ×3 (10:00→20:49)
[2021-01-06] MEDS: Budesonide/Formoterol 160/4.5 1 PUFF INH IH SCH ×2 (10:06→19:54)
[2021-01-06] MEDS: *HR* OxyCODONE/APAP 5/325 TABLET PO PRN (14:27)
[2021-01-07] MEDS: *HR* OxyCODONE/APAP 5/325 TABLET PO PRN ×2 (01:22→12:55)
[2021-01-07 05:14] LABS: Hematocrit 28.6 % (35.3-44.9); Hemoglobin 8.7 g/dL (11.5-15.4); Mean Corpuscular HGB Conc 30.4 g/dL (31.6-35.5); Mean Corpuscular Hemoglobin 25.5 pg (28.0-33.3); Mean Corpuscular Volume 83.9 fL (83.0-100.0); Mean Platelet Volume 10.2 fL (9.4-12.4); Platelet Count 166 K/mcL (140-400); Red Blood Count 3.41 M/mcL (3.82-4.97); Red Cell Distribution Width 18.6 % (11.5-14.5); White Blood Count 6.7 K/mcL (4.3-11.1)
[2021-01-07 05:35] LABS: BUN/Creatinine Ratio 18 (6-26); Blood Urea Nitrogen 14 mg/dL (8-23); Calcium 8.3 mg/dL (8.6-10.3); Carbon Dioxide 24 mEq/L (23-29); Chloride 112 mEq/L (98-107); Glucose 75 mg/dL (70-105); Osmolality,Calculated 297 (280-300); Potassium 3.4 mEq/L (3.5-5.1); Sodium 144 mEq/L (136-145); eGFR For African Americans > 60 (> 60); eGFR For Non-African Americans > 60 (> 60)
[2021-01-07] MEDS: *HR* Enoxaparin 40 MG/0.4 ML SYRINGE SQ SCH (06:51)
[2021-01-07] MEDS: Baclofen 10 MG TABLET PO SCH ×3 (07:52→21:21)
[2021-01-07] MEDS: predniSONE 5 MG TABLET PO SCH (07:52)
[2021-01-07] MEDS: Nitrofurantoin (BID) 100 MG CAPSULE PO SCH ×2 (07:52→17:15)
[2021-01-07] MEDS: Loratadine 10 MG TABLET PO SCH (07:52)
[2021-01-07] MEDS: Lactobacillus 1 EACH CAP.SPRINK PO SCH ×2 (07:52→21:21)
[2021-01-07] MEDS: Aspirin Enteric Coated 81 MG Tablet PO SCH (07:53)
[2021-01-07] MEDS: Cholecalciferol (D-3) 1,000 UNIT (25MCG) TABLET PO SCH (07:53)
[2021-01-07] MEDS: Omega-3/Dha/Epa/Fish Oil [Fish Oil 1,000 Mg Softgel] PO SCH (09:28)
[2021-01-07] MEDS: Gabapentin 100 MG CAPSULE PO SCH ×3 (09:30→21:22)
[2021-01-07] MEDS: Budesonide/Formoterol 160/4.5 1 PUFF INH IH SCH ×2 (10:56→19:59)
[2021-01-08] MEDS: *HR* OxyCODONE/APAP 5/325 TABLET PO PRN (02:13)
[2021-01-08] MEDS: *HR* Enoxaparin 40 MG/0.4 ML SYRINGE SQ SCH (05:55)
[2021-01-08 07:54] VITALS: BP 155/79; PULSE 61; RESP 18; TEMP 97.5; O2SAT 97
[2021-01-08] MEDS: Nitrofurantoin (BID) 100 MG CAPSULE PO SCH (08:46)
[2021-01-08] MEDS: predniSONE 5 MG TABLET PO SCH (08:46)
[2021-01-08] MEDS: Aspirin Enteric Coated 81 MG Tablet PO SCH (08:46)
[2021-01-08] MEDS: Lactobacillus 1 EACH CAP.SPRINK PO SCH (08:47)
[2021-01-08] MEDS: Loratadine 10 MG TABLET PO SCH (08:47)
[2021-01-08] MEDS: Cholecalciferol (D-3) 1,000 UNIT (25MCG) TABLET PO SCH (08:47)
[2021-01-08] MEDS: Baclofen 10 MG TABLET PO SCH (08:47)
[2021-01-08] MEDS: Budesonide/Formoterol 160/4.5 1 PUFF INH IH SCH (10:16)
[2021-01-08] MEDS: Gabapentin 100 MG CAPSULE PO SCH (10:56)
[2021-01-08] MEDS: Omega-3/Dha/Epa/Fish Oil [Fish Oil 1,000 Mg Softgel] PO SCH (10:56)
== END 2021-01-08 10:40 | disposition home health service (06) | DRG 59 ==
LOC: INPGRE 18:21
PROVIDERS: ADMIT Family Medicine; ATTEND Family Medicine